=== PATIENT | male | born 1995 | race Two or more races ===

== ENCOUNTER 2018-05-26 15:48 | Emergency (ER) | payer MEDICAID, SELFPAY ==
[~2018-05-26] VITALS: Ht 182.9 cm; Wt 102.0 kg
[2018-05-26] MEDS ORDERED: CEFTRIAXONE 250 MG IM ONE (17:00)
[2018-05-26 17:03] LABS: MICROSCOPIC NOT IND
[2018-05-26 17:11] LABS: CULTURE INDICATED? NO
[2018-05-26] MEDS ORDERED: CEFTRIAXONE 250 MG ONE (18:05)
[2018-05-26] MEDS ORDERED: LIDOCAINE-MPF 1%, 2ML ONE (18:05)
[2018-05-26 18:43] VITALS: BP 124/63
== END 2018-05-26 18:44 | disposition home or self-care (01) ==
LOC: ED 17:04
DX: N45.1 Epididymitis (principal)
CPT/HCPCS: 76870; 81003; 87491; 87591; 96372; 99285; J0696